=== PATIENT | female | born 1965 | race Two or more races ===

== ENCOUNTER 2020-03-10 10:56 | Outpatient (CLI) | payer OTHER | END 2020-03-10 11:00 | disposition home or self-care (01) | LOC: SONOGRAMA 10:56 | PROVIDERS: ATTEND Pathology Anatomic Pathology & Clinical Pathology | DX: E04.1 Nontoxic single thyroid nodule (principal); R59.0 Localized enlarged lymph nodes ==

== ENCOUNTER 2020-05-23 16:48 | Emergency (ER) | payer OTHER ==
[~2020-05-23] VITALS: Ht 175.3 cm; Wt 70.3 kg
== END 2020-05-23 18:56 | disposition home or self-care (01) ==
LOC: ER 16:48
DX: B37.0 Candidal stomatitis (principal)

== ENCOUNTER 2020-06-03 21:57 | Emergency (ER) | payer OTHER ==
[~2020-06-03] VITALS: Ht 167.6 cm; Wt 72.6 kg
[2020-06-04] MEDS ORDERED: SYMBICORT 16010.2 GM IH (02:54)
[2020-06-04] MEDS ORDERED: ALBUTEROL2.5 MG/3 M IH (02:54)
== END 2020-06-04 03:01 | disposition home or self-care (01) ==
LOC: ER 21:57
DX: R07.89 Other chest pain (principal); Z20.822 Contact with and (suspected) exposure to COVID-19

== ENCOUNTER 2020-06-26 20:39 | Emergency (ER) | payer OTHER ==
[~2020-06-26] VITALS: Ht 167.6 cm; Wt 70.3 kg
[~2020-06-26 20:39] MED LIST: ALBUTEROL2.5 MG/3 M IH; SYMBICORT 16010.2 GM IH
[2020-06-26] MEDS ORDERED: CLONAZEPAM0.5 MG (20:56)
[2020-06-26] MEDS ORDERED: PEPCID AC20 MG (20:57)
[2020-06-26] MEDS ORDERED: OMEPRAZOLE MAGN20 MG (20:57)
[2020-06-26] MEDS ORDERED: CLARITIN10 M1 PO (21:36)
== END 2020-06-26 21:44 | disposition home or self-care (01) ==
LOC: ER 20:39
DX: R07.0 Pain in throat (principal)

== ENCOUNTER 2020-08-03 10:16 | Emergency (ER) | payer OTHER ==
[~2020-08-03] VITALS: Ht 167.6 cm; Wt 70.3 kg
[~2020-08-03 10:16] MED LIST changes: +CLARITIN10 M1 PO; +CLONAZEPAM0.5 MG; +OMEPRAZOLE MAGN20 MG; +PEPCID AC20 MG
[2020-08-03] MEDS ORDERED: CLARITHROMYCIN500 MG (10:26)
[2020-08-03] MEDS ORDERED: AMOX1TAB5 (10:27)
[2020-08-03] MEDS ORDERED: BIOTINEX (10:27)
[2020-08-03] MEDS ORDERED: CYCLOBENZAPRINE10 MG PO (10:40)
[2020-08-03] MEDS ORDERED: DICLOFENAC POTA50 MG PO (10:40)
== END 2020-08-03 10:49 ==
LOC: ER 10:16
DX: M62.830 Muscle spasm of back (principal)

== ENCOUNTER 2020-09-16 07:42 | Emergency (ER) | payer OTHER ==
[~2020-09-16] VITALS: Ht 167.6 cm; Wt 72.6 kg
[~2020-09-16 07:42] MED LIST changes: +AMOX1TAB5; +BIOTINEX; +CLARITHROMYCIN500 MG; +CYCLOBENZAPRINE10 MG PO; +DICLOFENAC POTA50 MG PO
[2020-09-16] MEDS ORDERED: METFORMIN HCL500 MG PO (07:50)
[2020-09-16] MEDS ORDERED: ORPHENADRINE C100 MG PO (11:13)
[2020-09-16] MEDS ORDERED: KETO10TA2 PO (11:13)
== END 2020-09-16 12:39 | disposition home or self-care (01) ==
LOC: ER 07:42
DX: M62.830 Muscle spasm of back (principal); M54.2 Cervicalgia

== ENCOUNTER 2024-04-18 01:34 | Emergency (ER) | payer OTHER ==
[~2024-04-18] VITALS: Ht 167.6 cm; Wt 68.5 kg
[~2024-04-18 01:34] MED LIST changes: +KETO10TA2 PO; +METFORMIN HCL500 MG PO; +ORPHENADRINE C100 MG PO
[2024-04-18] MEDS ORDERED: ZESTRIL2.5 MG (01:41)
[2024-04-18] MEDS ORDERED: ACID REDUCER20 M1 (01:41)
[2024-04-18 01:42] VITALS: BP 137/86; O2SAT 95
[2024-04-18] MEDS ORDERED: INSULIN REGULAR, HUMAN 1,000 UNIT/10 ML UNITS IV STA ×2 (02:48→04:56)
[2024-04-18] MEDS ORDERED: ACETAMINOPHEN 500 MG GEL..CAP PO STA (02:50)
[2024-04-18] MEDS ORDERED: 0.9 % SODIUM CHLORIDE 1,000 ML IV ONE (03:00)
[2024-04-18] MEDS ORDERED: ACETAMINOPHEN 500 MG GEL..CAP PO ONE (03:12)
[2024-04-18 03:21] LABS: HEMATOCRIT 47.1 % (36.0-45.00); MEAN CELL VOLUME 84.6 fL (80.00-100.00); MEAN CORPUSCULAR HEMOGLOBIN 28.7 pg (27.00-32.0); MEAN CORPUSCULAR HGB CONC 33.9 g/dl (32.0-36.0); PLATELET COUNT 263 K/uL (150-450); RED BLOOD COUNT 5.57 M/uL (4.00-6.00); RED CELL DISTRIBUTION WIDTH 13.1 % (11.5-14.5)
[2024-04-18 03:35] LABS: PH,URINE 5.5 (5.0-8.0); URINE APPEARANCE Clear; URINE BILIRRUBIN Negative (NEGATIVE); URINE BLOOD Large; URINE COLOR Yellow; URINE LEUKOCYTE Negative; URINE NITRATE Negative; URINE PROTEIN 30 (NEGATIVE); URINE UROBILINOGEN 0.2 E.U./dl
[2024-04-18 03:39] LABS: URINE BACTERIA 341.4 uL (0.0-1933); URINE EPITHELIAL CELLS 54.7 uL (0.0-38.8); URINE WBC 14.3 uL (0.0-23.2)
[2024-04-18 04:08] LABS: URINE GLUCOSE >=1000 MG/DL (NEGATIVE); URINE KETONE 40 (NEGATIVE)
[2024-04-18 04:23] LABS: ALBUMIN 4.1 gm/dL (3.4-5.0); BILIRUBIN TOTAL 0.45 mg/dL (0.3-1.2); CALCIUM 10.4 mg/dL (8.5-10.1); CREATININE SERUM 0.93 mg/dL (0.55-1.02); GFR 61.92; GLOBULINA 3.9 G/DL (2.4-3.5)
[2024-04-18] MEDS ORDERED: DOLOGESIC-DF 51 EACH PO (05:57)
[2024-04-18] MEDS ORDERED: METFORMIN HCL500 M3 PO (05:57)
== END 2024-04-18 06:02 ==
LOC: ER 01:34
PROVIDERS: General Practice
DX: U07.1 COVID-19 (principal); E11.9 Type 2 diabetes mellitus without complications; Z79.84 Long term (current) use of oral hypoglycemic drugs